=== PATIENT | female | born 2000 | race Caucasian/White ===

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

== ENCOUNTER 2022-06-16 18:36 | Emergency (ER) | payer OTHER ==
[~2022-06-16] VITALS: Ht 162.6 cm; Wt 91.3 kg
[2022-06-16] MEDS ORDERED: AMOX TR-K CLV1 EAC1 PO (23:28)
== END 2022-06-16 23:45 | disposition home or self-care (01) ==
LOC: ED 18:36
DX: N61.0 Mastitis without abscess (principal); G40.909 Epilepsy, unspecified, not intractable, without status epilepticus; Z88.8 Allergy status to other drugs, medicaments and biological substances; Z88.2 Allergy status to sulfonamides; Z91.013 Allergy to seafood; Z91.030 Bee allergy status
CPT/HCPCS: 36415; 76642; 80048; 85025; 99283-25; A9270

== ENCOUNTER 2022-10-01 10:05 | Emergency (ER) | payer OTHER ==
[~2022-10-01] VITALS: Ht 162.6 cm; Wt 99.2 kg
[~2022-10-01 10:05] MED LIST changes: +AMOX TR-K CLV1 EAC1 PO
[2022-10-01] MEDS ORDERED: PREDNISONE20 MG PO (10:42)
[2022-10-01] MEDS ORDERED: AMOX TR-K CLV1 EAC1 PO (10:42)
[2022-10-01 10:51] VITALS: BP 153/53
== END 2022-10-01 10:52 | disposition home or self-care (01) ==
LOC: ED 10:05
DX: J40 Bronchitis, not specified as acute or chronic (principal); H66.92 Otitis media, unspecified, left ear; Z91.09 Other allergy status, other than to drugs and biological substances; Z88.8 Allergy status to other drugs, medicaments and biological substances; Z88.2 Allergy status to sulfonamides; Z91.030 Bee allergy status; Z91.013 Allergy to seafood
CPT/HCPCS: 99283

== ENCOUNTER 2022-10-30 14:15 | Emergency (ER) | payer OTHER ==
[~2022-10-30] VITALS: Ht 162.6 cm; Wt 90.8 kg
[~2022-10-30 14:15] MED LIST changes: +PREDNISONE20 MG PO
[2022-10-30] MEDS ORDERED: ONDANSETRON ODT8 MG PO (15:54)
[2022-10-30 16:00] VITALS: BP 105/63
== END 2022-10-30 16:07 | disposition home or self-care (01) ==
LOC: ED 14:15
DX: K29.00 Acute gastritis without bleeding (principal); Z88.2 Allergy status to sulfonamides; Z91.030 Bee allergy status; Z88.8 Allergy status to other drugs, medicaments and biological substances
CPT/HCPCS: 80053; 81001; 83690; 84703; 85025; 99284

== ENCOUNTER 2023-02-17 15:07 | Emergency (ER) | payer OTHER ==
[~2023-02-17] VITALS: Ht 157.5 cm; Wt 94.3 kg
[~2023-02-17 15:07] MED LIST changes: +EXCEDRIN MIGRA1 EAC2 PO; +LYSTEDA650 MG PO; +NORETHINDRONE0.35 MG PO; +ONDANSETRON ODT8 MG PO; +PROVERA5 MG PO
[2023-02-17 16:26] LABS: INFLUENZA B NAA NEGATIVE (NEGATIVE); RESPIRATORY SYNCYTIAL VIR NAA NEGATIVE (NEGATIVE)
[2023-02-17 17:02] VITALS: BP 117/83
== END 2023-02-17 17:04 | disposition home or self-care (01) ==
LOC: ED 15:07
PROVIDERS: Emergency Medicine
DX: J06.9 Acute upper respiratory infection, unspecified (principal); Z88.2 Allergy status to sulfonamides; Z88.8 Allergy status to other drugs, medicaments and biological substances; Z91.030 Bee allergy status; Z79.899 Other long term (current) drug therapy; Z20.822 Contact with and (suspected) exposure to COVID-19
CPT/HCPCS: 87502; 99283; C9803; U0002

== ENCOUNTER 2024-11-08 22:28 | Inpatient (IN) | payer OTHER ==
[~2024-11-08] VITALS: Ht 157.5 cm; Wt 104.8 kg
[2024-11-08 23:14] LABS: AMNISURE ROM TEST POSITIVE
[2024-11-08] MEDS ORDERED: SOD+POT BICARB/CITRIC ACID 2 EA TABLET.EFF PO ONE (23:30)
[2024-11-08] MEDS ORDERED: LACTATED RINGER'S 1,000 ML IV PRN (23:30)
[2024-11-08] MEDS ORDERED: AZITHROMYCIN 500 MG in DEXTROSE 5% 250 ML IV ONE (23:45)
[2024-11-08] MEDS ORDERED: CEFAZOLIN SODIUM 2 GM/20 ML SYR IV SCH (23:51)
[2024-11-08 23:52] LABS: HEMATOCRIT 35.4 % (34.1-44.9); HEMOGLOBIN 11.4 g/dL (11.2-15.7); MCH 25.7 PG (25.6-32.2); MCHC 32.2 g/dL (32.2-35.5); MCV 79.7 fL (79.4-94.8); RBC 4.44 M/uL (3.93-5.22)
[2024-11-09 00:02] VITALS: BP 129/71
[2024-11-09 00:02] LABS: AMPHETAMINES, URINE NEGATIVE (NEGATIVE); BENZODIAZEPINE, URINE NEGATIVE (NEGATIVE); BUPRENORPHINE, URINE NEGATIVE (NEGATIVE); CANNABINOID, URINE NEGATIVE (NEGATIVE); COCAINE, URINE NEGATIVE (NEGATIVE); ECSTASY, URINE NEGATIVE (NEGATIVE); FENTANYL, URINE NEGATIVE (NEGATIVE); METHADONE, URINE NEGATIVE (NEGATIVE); OPIATES, URINE NEGATIVE (NEGATIVE); OXYCODONE, URINE NEGATIVE (NEGATIVE); PHENCYCLIDINE, URINE NEGATIVE (NEGATIVE)
[2024-11-09] MEDS ORDERED: BUPIVACAINE 0.75% IN DEXTROSE 2 ML AMP ONE (00:07)
[2024-11-09] MEDS ORDERED: ePHEDrine sulfate 50 MG/ML AMP ONE (00:07)
[2024-11-09] MEDS ORDERED: MORPHINE SULFATE 1 MG/ML VIAL ONE (00:07)
[2024-11-09] MEDS ORDERED: PHENYLEPHRINE HCL 10 MG/ML VIAL ONE (00:07)
[2024-11-09] MEDS ORDERED: LIDOCAINE HCL 2% 5 ML SDV ONE (00:07)
[2024-11-09] MEDS ORDERED: fentaNYL citrate 100 MCG/2 ML VIAL ONE (00:07)
[2024-11-09] MEDS ORDERED: OXYTOCIN 10 UNITS/ML VIAL ONE (00:07)
[2024-11-09] MEDS ORDERED: dexmedeTOMIDine HCl 200 MCG/2 ML VIAL ONE (00:12)
[2024-11-09] MEDS ORDERED: ondansetron HCL 4 MG/2 ML VIAL ONE (00:12)
[2024-11-09 00:28] LABS: ABO O; ANTIBODY SCREEN NEGATIVE; RH POSITIVE
[2024-11-09] MEDS ORDERED: LACTATED RINGER'S 1,000 ML IV ONE (00:46)
[2024-11-09] MEDS ORDERED: SODIUM CHLORIDE 0.9% 60 ML IV ONE (00:46)
[2024-11-09] MEDS ORDERED: Ropivacaine HCl 0.5% 30 ML VIAL ONE (00:46)
[2024-11-09] MEDS ORDERED: DEXAMETHASONE SOD PHOS 4 MG/ML VIAL ONE ×2 (00:46)
[2024-11-09] MEDS ORDERED: KETOROLAC TROMETHAMINE 30 MG/ML VIAL ONE (00:46)
[2024-11-09] MEDS ORDERED: droPERidol 5 MG/2 ML VIAL ONE (01:05)
[2024-11-09] MEDS ORDERED: ACETAMINOPHEN 1,000 MG/100 ML VIAL ONE (01:07)
[2024-11-09] MEDS ORDERED: PROMETHAZINE HCL 25 MG TAB PO PRN (01:30)
[2024-11-09] MEDS ORDERED: HYDROCODONE/ACETA 5/325 TAB PO PRN (01:30)
[2024-11-09] MEDS ORDERED: PROCHLORPERAZINE EDISYLATE 10 MG/2 ML VIAL IV PRN (01:30)
[2024-11-09] MEDS ORDERED: ondansetron HCL 4 MG/2 ML VIAL IV PRN ×3 (01:30→01:45)
[2024-11-09] MEDS ORDERED: OXYTOCIN/0.9 % SODIUM CHLORIDE 500 ML IV SCH ×2 (01:30→09:15)
[2024-11-09] MEDS ORDERED: METOCLOPRAMIDE HCL 10 MG/2 ML SDV IV PRN (01:30)
[2024-11-09] MEDS ORDERED: bisacodyL 10 MG SUPP PR PRN (01:30)
[2024-11-09] MEDS ORDERED: LACTATED RINGER'S 1,000 ML IV SCH ×2 (01:31→05:00)
[2024-11-09] MEDS ORDERED: fentaNYL citrate 50 MCG/ML SDV IV PRN (01:45)
[2024-11-09] MEDS ORDERED: NALOXONE HCL 0.4 MG SYR IV PRN ×2 (01:45)
[2024-11-09] MEDS ORDERED: KETOROLAC TROMETHAMINE 30 MG/ML VIAL IV PRN (01:45)
[2024-11-09] MEDS ORDERED: diphenhydrAMINE HCL 50 MG/ML VIAL IV PRN ×2 (01:45)
[2024-11-09] MEDS ORDERED: HYDROmorphone HCL 1 MG/ML SYR IV PRN (01:45)
[2024-11-09] MEDS ORDERED: MORPHINE SULFATE 4 MG/ML VIAL IV PRN (01:45)
[2024-11-09] MEDS ORDERED: IBLOOD GLUCOSE TEST STRIP 1 EA TEST VI PRN (01:45)
[2024-11-09] MEDS ORDERED: diphenhydrAMINE HCL 50 MG/ML VIAL ONE (01:54)
[2024-11-09] MEDS ORDERED: KETOROLAC TROMETHAMINE 30 MG/ML VIAL IV SCH (02:00)
[2024-11-09 02:12] VITALS: BP 122/59
--- NOTE | 2024-11-09 02:19 | NUR ---
11/09/24 0219 Alla Umana 0135-PT BROUGHT TO [facility] ROOM 103 FROM OR, VIA STRETCHER, PT RESTING SEMI FOWLERS, A+OX4, PT DENIES PAIN OR NAUSEA, VSS ON RA, HOB RAISED PER PT REQUEST. 20G IV TO RH INFUSING IV FLUIDS. 0140-PT SITTING UP IN BED, DENIES PAIN OR NAUSEA, PT , VS REMAIN STABLE ON RA. 0200-BEDSIDE REPORT GIVEN TO [facility] RN, ALL QUESTIONS ANSWERED. PT RESTING W/ EYES CLOSED BUT AWAKENS EASILY TO VOICE, DENIES PAIN OR NAUSEA, VSS ON RA. FINAL FUNDAL CHECK COMPLETED WITH [facility] RN, LARGE CLOT EXPELLED, TOP PAD REMOVED AND WEIGHED, NEW PAD PLACED. PT REMAINS FIRM AND MIDLINE, BEFORE AND AFTER CLOT WAS EXPELLED.
[2024-11-09 03:45] LABS: IS CROSSMATCH COMPATIBLE
[2024-11-09] MEDS ORDERED: TRANEXAMIC ACID IN NACL,ISO-OS 1,000 MG/100 ML PIGGYBACK IV ONE ×2 (04:30→06:30)
[2024-11-09] MEDS ORDERED: miSOPROStoL 200 MCG TAB PR ONE ×2 (04:30→06:30)
[2024-11-09 05:29] LABS: BASOPHILS 0.1 % (0.1-1.2); EOSINOPHILS 0 % (0.7-5.8); HEMOGLOBIN 10.3 g/dL (11.2-15.7); LYMPHOCYTES 6.1 % (19.3-51.7); MCH 25.6 PG (25.6-32.2); MCHC 31.2 g/dL (32.2-35.5); MCV 82.1 fL (79.4-94.8); MONOCYTES 1.4 % (4.7-12.5); NEUTROPHILS 91.8 % (34.0-71.1); PLATELET COUNT 194 K/uL (182-369); RBC 4.02 M/uL (3.93-5.22)
[2024-11-09 05:54] LABS: INR 0.97 (0.80-1.30); PROTIME 12.5 Sec (11.2-14.2)
[2024-11-09 05:57] LABS: PARTIAL THROMBOPLASTIN TIME 26.2 Sec (22.9-41.3)
[2024-11-09] MEDS ORDERED: miSOPROStoL 200 MCG TAB BUCCAL ONE (06:25)
[2024-11-09] MEDS ORDERED: miSOPROStoL 200 MCG TAB ONE (06:34)
[2024-11-09] MEDS ORDERED: SIMETHICONE 80 MG CHEW PO SCH (07:00)
--- NOTE | 2024-11-09 07:20 | PR ---
[facility] [address] [place], [place] [address] Signed PP Progress Notes Datetime Report Generated by MIKHAIL: 11/09/2024 07:20 SUBJECTIVE: [id number] Pain: Within Normal Limits Pain Comments: abnormal uterine bleeding Nausea/Vomiting: Denies Vital Signs: [id number] Vital Signs: Reviewed; Within Normal Limits Cardiovascular: Normal Respiratory: Normal Abdomen/Uterus: Abnormal Lochia: Abnormal Vulva/Perineum: Normal Incision: Normal IMPRESSION/PLAN/PROCEDURES: [id number] Other Impression: hemorrhage Other Plans: Place second IV, obtain labs, give second dose of TXA/cytotec Other Procedures: Meaghan balloon placed Progress Notes: Called to evaluate patien approximatedly 5 hours s/p C/S. During C/S she had 550 cc EBL. Several hours post she began having heavier bleeding and lost an additional 300 cc in an hour. She was given cytotec and TXA. Bleeding continued and patient was evaluated by SAMMI Hogan. Clots were evacuated and approximately 1200cc of total EBL were noted. At thsi time Tyra asked me to come evaluate patient and I removed additional clots and noted continued monerate bleeding. I proceeded to place Meaghan according to instructions. COnfirmation was verified by U/S and 60cc of saline were used to inflate the cervical balloon. Wall suction was set to 80mmHg Total EBL was 1728. H/H at 6 am was 10.3/33.0 plt 194 fibrinogen 407. Preop H/h 11.4/35.4 plt 198. Will repeat labs at this time. Vital signs ore stable. Discussed with patietn what indications for transfusion woudl be. Signing Physician: Yumiko Juarez MD Copies: ~ *Electronically Signed* 11/09/24 0720 YUMIKO JUAREZ MD PATIENT NAME: JOAN HENNING PROGRESS NOTE DATE OF : 01 PHYSICIAN: YUMIKO JUAREZ MD RPT #: [id number] REPORT IS CONFIDENTIAL AND NOT TO BE RELEASED WITHOUT AUTHORIZATION
[2024-11-09 07:26] LABS: BASOPHILS 0.1 % (0.1-1.2); EOSINOPHILS 0 % (0.7-5.8); HEMATOCRIT 29.9 % (34.1-44.9); HEMOGLOBIN 9.7 g/dL (11.2-15.7); LYMPHOCYTES 5.8 % (19.3-51.7); MCH 25.9 PG (25.6-32.2); MCHC 32.4 g/dL (32.2-35.5); MCV 79.9 fL (79.4-94.8); MONOCYTES 1.6 % (4.7-12.5); NEUTROPHILS 91.8 % (34.0-71.1); PLATELET COUNT 180 K/uL (182-369); RBC 3.74 M/uL (3.93-5.22)
[2024-11-09 07:36] LABS: INR 1.03 (0.80-1.30); PROTIME 13.1 Sec (11.2-14.2)
[2024-11-09 07:38] LABS: PARTIAL THROMBOPLASTIN TIME 25.8 Sec (22.9-41.3)
[2024-11-09] MEDS ORDERED: ACETAMINOPHEN 325 MG TAB PO ONE (11:00)
[2024-11-09 13:11] LABS: HEMOGLOBIN 8.4 g/dL (11.2-15.7); MCH 25.5 PG (25.6-32.2); MCHC 32.3 g/dL (32.2-35.5); RBC 3.29 M/uL (3.93-5.22)
--- NOTE | 2024-11-09 20:39 | PR ---
[facility] [address] [place], [place] [address] Signed PP Progress Notes Datetime Report Generated by MIKHAIL: 11/09/2024 20:38 SUBJECTIVE: [id number] Pain: Within Normal Limits Pain Comments: abnormal uterine bleeding Nausea/Vomiting: Denies Flatus: Yes Vital Signs: [id number] Vital Signs: Reviewed; Within Normal Limits Cardiovascular: Normal Respiratory: Normal Abdomen/Uterus: Normal Lochia: Normal Vulva/Perineum: Normal Breasts: Not Done CVA Tenderness: Not Done Extremities: Normal Incision: Normal Progress: Normal IMPRESSION/PLAN/PROCEDURES: [id number] Other Impression: Post Plan: Continue Present Management Other Plans: Place second IV, obtain labs, give second dose of TXA/cytotec Other Procedures: Meaghan removal Progress Notes: Meaghan suction was turned off, unplugged and balloon deflated approximately 45 minutes ago. No additional bleeding has been noted and fundal height remains -2u. I removed the meaghan and performed an examination noting no additional bleeding. Pt was observed and no additional bleeding noted. Will plan for repeat CBC in am. Signing Physician: Yumiko Juarez MD Copies: ~ *Electronically Signed* 11/09/242037 YUMIKO JUAREZ MD PATIENT NAME: JOAN HENNING PROGRESS NOTE DATE OF : 01 PHYSICIAN: YUMIKO JUAREZ MD RPT #: [id number] REPORT IS CONFIDENTIAL AND NOT TO BE RELEASED WITHOUT AUTHORIZATION
[2024-11-10] MEDS ORDERED: IBUPROFEN 600 MG TAB PO SCH (02:00)
[2024-11-10 05:29] LABS: HEMATOCRIT 27.2 % (34.1-44.9); HEMOGLOBIN 8.7 g/dL (11.2-15.7); MCH 26.1 PG (25.6-32.2); MCV 81.7 fL (79.4-94.8); RBC 3.33 M/uL (3.93-5.22)
--- NOTE | 2024-11-10 08:20 | PR ---
[facility] [address] [place], [place] [address] Signed PP Progress Notes Datetime Report Generated by CPN: 11/10/2024 08:19 SUBJECTIVE: [id number] Pain: Within Normal Limits Pain Comments: abnormal uterine bleeding Nausea/Vomiting: Denies Flatus: No Bowel Movement: No Vital Signs: [id number] Vital Signs: Reviewed; Within Normal Limits Cardiovascular: Normal Respiratory: Normal Abdomen/Uterus: Normal Lochia: Normal Vulva/Perineum: Normal Breasts: Normal CVA Tenderness: Not Done Extremities: Normal Incision: Normal Progress: Normal Exam Comments: normal post op exam IMPRESSION/PLAN/PROCEDURES: [id number] Impression: Normal Progression Other Impression: Post Plan: Continue Present Management Other Plans: Place second IV, obtain labs, give second dose of TXA/cytotec Procedures: None Other Procedures: Meaghan removal Progress Notes: Doing well today. Has been up to BR x 3 to void. Denies dizziness. Says she feels really good. Abdomen is soft. Meaghan was removed last night and lochia has been light. Denies headache. She is . H/H 8.7 and 27.2 this morning. Routine post op orders. Anticipate discharge tomorrow. Signing Physician: Yumiko Juarez MD Copies: ~ *Electronically Signed* 11/10/24 0819 YUMIKO JUAREZ MD PATIENT NAME: JOAN HENNING PROGRESS NOTE DATE OF : 01 PHYSICIAN: YUMIKO JUAREZ MD RPT #: [id number] REPORT IS CONFIDENTIAL AND NOT TO BE RELEASED WITHOUT AUTHORIZATION
[2024-11-10] MEDS ORDERED: SENNOSIDES/DOCUSATE 1 EA TAB PO SCH (15:00)
[2024-11-11] MEDS ORDERED: MEASLES,MUMPS&RUBELLA VACCINE 1 VIAL VIAL SUB-Q ONE (08:30)
--- NOTE | 2024-11-11 11:10 | PR ---
[facility] [address] [place], [place] [address] Signed PP Progress Notes Datetime Report Generated by CPN: 11/11/2024 11:10 SUBJECTIVE: [id number] Pain: Within Normal Limits Pain Comments: abnormal uterine bleeding Nausea/Vomiting: Denies Flatus: Yes Bowel Movement: No Vital Signs: [id number] Vital Signs: Reviewed; Within Normal Limits Cardiovascular: Normal Respiratory: Normal Abdomen/Uterus: Normal Lochia: Normal Vulva/Perineum: Not Done Breasts: Not Done CVA Tenderness: Normal Extremities: Normal Incision: Normal Progress: Normal Exam Comments: Fundus firm U-2 nontender. Incision healing well. IMPRESSION/PLAN/PROCEDURES: [id number] Impression: Normal Progression Other Impression: Post Plan: Discharge Other Plans: Place second IV, obtain labs, give second dose of TXA/cytotec Procedures: None Other Procedures: Meaghan removal Progress Notes: Pt seen and examined. Doing well. Ambulating, voiding, and tolerating full diet. Pain and lochia minimal well. No concerns. Desires d/c home. Reviewed d/c instructions and medications in detail. S/P B salpingectomy for pp contraception. All questions answered. Signing Physician: Elen Miranda DO Copies: ~ *Electronically Signed* 11/11/24 1777 ELEN MIRANDA (MATIAS) DO PATIENT NAME: JOAN HENNING PROGRESS NOTE DATE OF : 01 PHYSICIAN: ELEN MIRANDA (JD) DO RPT #: [id number] REPORT IS CONFIDENTIAL AND NOT TO BE RELEASED WITHOUT AUTHORIZATION
--- NOTE | 2024-11-12 10:44 | PATH ---
[facility] [address] [place], [place] [address] Signed SPECIMEN(S): A RIGHT FALLOPIAN TUBE SPECIMEN(S): B LEFT FALLOPIAN TUBE SPECIMEN SOURCE: A. RIGHT FALLOPIAN TUBE B. LEFT FALLOPIAN TUBE CLINICAL HISTORY: Repeat in labor with BTL FINAL PATHOLOGIC DIAGNOSIS: A-B. 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 These findings, together with the gross examination, support the pathologic diagnosis. GROSS DESCRIPTION: A. The specimen, labeled and designated "Jonathan, right fallopian tube," is received in formalin and consists of a red-brown fimbriated fallopian tube segment (10.0 cm in length and ranging in diameter from 0.6 to 1.5 cm). The segment is serially sectioned to reveal brown soft cut surfaces. Airfield Manager sections including the fimbriae entirely are submitted in cassette (A1-A2). B. The specimen, labeled and designated "Jonathan, left fallopian tube," is received in formalin and consists of a red-brown fimbriated fallopian tube segment (9.5 cm in length and ranging in diameter from 0.7 to 1.3 cm). The segment is inked blue, and the tissue is serially sectioned to reveal red-brown soft cut surfaces. Airfield Manager sections including the fimbriae entirely are submitted in cassette (B1-B2). VB (under the direct supervision of a pathologist) The Gross Description was prepared using a voice recognition system. The report was reviewed for accuracy; however, sound-alike word errors, addition and/or deletions may occur. If there is any question about this report, please contact Client Services. PATIENT NAME: JOAN HENNING PATHOLOGY DATE OF : 01 REPORT #: [id number] PHYSICIAN: EDWARD PATHOLOGY PCP: NO PRIMARY CARE PHYSICIAN REPORT IS CONFIDENTIAL AND NOT TO BE RELEASED WITHOUT AUTHORIZATION [facility] [address] [facility] [place] [address] Signed ADDITIONAL NOTES: Immunohistochemical and/or in situ hybridization studies if performed in this case included appropriate positive controls that reacted as expected. This test was developed and its performance characteristics determined by [facility]. It has not been cleared or approved by the U.S. Food and Drug Administration. The FDA has determined that such clearance or approval is not necessary. This test is used for clinical purposes. It should not be regarded as investigational or for research. [facility] is certified under the Clinical Laboratory Improvement Amendments of 1988 (CLIA) as qualified to perform high complexity clinical laboratory testing. PERFORMING LABORATORY: Technical component was performed by [facility], [address] [place] [id number] (CLIA# [id number]). Professional interpretation was performed by [facility], [address] [place] [id number] (CLIA#: [id number]). Diagnostician: Margarito Gonzalez MD Pathologist Electronically Signed 11/12/2024 Copies: ~ PATIENT NAME: JOAN HENNING PATHOLOGY DATE OF : 01 REPORT #: [id number] PHYSICIAN: EDWARD PATHOLOGY PCP: NO PRIMARY CARE PHYSICIAN REPORT IS CONFIDENTIAL AND NOT TO BE RELEASED WITHOUT AUTHORIZATION
== END 2024-11-11 11:10 | disposition home or self-care (01) | DRG 783 ==
LOC: FBCO 22:28 → FBC 23:28
PROVIDERS: ADMIT Obstetrics & Gynecology; ATTEND Obstetrics & Gynecology
PROC: 10D00Z1 Extraction of Products of Conception, Low, Open Approach (ICD-10-PCS; principal; 2024-11-10)
PROC: 0UB70ZZ Excision of Bilateral Fallopian Tubes, Open Approach (ICD-10-PCS; 2024-11-10)
PROC: 0W3R7ZZ Control Bleeding in Genitourinary Tract, Via Natural or Artificial Opening (ICD-10-PCS; 2024-11-10)
DX: O34.211 Maternal care for low transverse scar from previous cesarean delivery (principal); G93.5 Compression of brain; O72.1 Other immediate postpartum hemorrhage; O99.354 Diseases of the nervous system complicating childbirth; G40.909 Epilepsy, unspecified, not intractable, without status epilepticus; G43.909 Migraine, unspecified, not intractable, without status migrainosus; Z37.0 Single live birth; O77.0 Labor and delivery complicated by meconium in amniotic fluid; O99.824 Streptococcus B carrier state complicating childbirth; O99.344 Other mental disorders complicating childbirth; F41.9 Anxiety disorder, unspecified; O99.214 Obesity complicating childbirth; Z3A.39 39 weeks gestation of pregnancy; Z88.2 Allergy status to sulfonamides; Z88.8 Allergy status to other drugs, medicaments and biological substances; Z91.030 Bee allergy status; Z87.891 Personal history of nicotine dependence
CPT/HCPCS: 01961; 36415; 76942; 80307; 84112; 85025; 85027; 85384; 85610; 85730; 86850; 86900; 86901; 86922; 88302; 90707; A9270; J0131; J0456; J0690; J1100; J1200; J1790; J1885; J2003; J2274; J2371; J2405; J2590; J2795; J3010; J7060; J7121